=== PATIENT | male | born 1960 | race Caucasian/White ===

== ENCOUNTER → 2024-04-17 15:53 | Outpatient (REF) | payer BC, SELFPAY | LOC: RAD 15:53 | PROVIDERS: ATTENDING PHYSICIAN Nurse Practitioner Family | DX: R06.2 Wheezing (principal) | CPT/HCPCS: 71046 ==

== ENCOUNTER 2025-06-08 09:25 | Emergency (ER) | payer BC, SELFPAY ==
[2025-06-08 09:28] VITALS: BP 154/87
--- NOTE | 2025-06-08 11:25 | ED.MUSCINJ ---
HPI-Injury
General
Chief Complaint: Musculo-Skeletal Complaint
Source: patient
Exam Limitations: none
Time Seen by Provider: 06/08/25 11:10
History of Present Illness-Injury
Initial Injury comments:
64-year-old male presents with worsening lower back pain over the past several days. He has had back pain intermittently over several years but is usually able to manage it. This pain seems different. It catches him when he tries to change
position. There is no associated bowel or bladder dysfunction. No perianal anesthesia. No fever. He tried ibuprofen yesterday without significant relief. 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 He is healthy otherwise
Past History
Past History
ED Past Medical History: Negative CAD or Cancer
ED Past Surgical History: Cholecystectomy and Other (eye surgery)
Social History
Tobacco: Non-smoker
Alcohol: None
Drug: None
Personal:
Living: with family
Employment: Employed
Phy Exam
Physical Exam
Physical Exam:
General: Well-appearing male no acute respiratory distress
HEENT: Normocephalic atraumatic
Heart: Regular rate and rhythm
Lungs: Clear no wheeze
Musculoskeletal exam: Mild tenderness about the midline of the lumbar spine good range of motion all extremities
Neurologic: Good sensation and strength to the lower extremities
Vascular: Lower extremities have good blood flow 2+ DP pulse bilaterally
Injury Course
Orders/Labs/Results
Orders:
Orders
06/08/25 11:23
Diazepam [Valium] 5 mg PO NOW STA
Ketorolac [Toradol] 30 mg IM NOW STA
CR Lumbar Spine 2 Or 3 Views Urgent
Comment:
Reason For Exam: back pain
MDM/Problems Addressed
Differential Diagnosis Includes:
Low back pain without red flag signs of cauda equina. Suspect lumbar strain versus degenerative disc disease versus compression fracture. No fever to suggest infectious source
X-rays pending. Will treat with Toradol and Valium
*Pulse Oximetry
SaO2: 99
Oxygen Mode of Delivery: Room air
Patient hypoxic: no
*Critical Care Note
Total Time (30-74mins, 75-104mins- exclusive of procedures): Not Applicable
Update Note
Update Note:
X-rays lumbar spine show mild degenerative changes throughout. Overall this is the expected findings. Suspect pain related to degenerative disc versus lumbar strain. Will continue to help with medication at home and advise follow-up. Stable for
discharge
ED Attending Note
-
Portions of this chart may have been created with voice recognition software.� Occasional wrong word or��sound alike� substitutions may have occurred due to the inherent limitations of voice recognition software.
Discharge Plan
Departure
Patient Disposition: Home (Routine Discharge)
Date of Disposition: 06/08/25
Time of Disposition: 13:39
Patient with high blood pressure during this ER visit?: No
Discharge Problem:
Lumbar strain
Instructions: Muscle and Bone Pain (DC)
Prescriptions:
New
hydrocodone-acetaminophen 5-325 mg tablet
1 tab PO Q8H PRN (Reason: Pain) Qty: 10 0RF
diazepam [Valium] 5 mg tablet
5 mg PO Q8H PRN (Reason: spasm) Qty: 10 0RF
prednisone 10 mg Tablet
See Rx Instructions .ROUTE .COMPLEX Qty: 30 0RF
Rx Instructions:
Take By Mouth:
40 mg daily x3 days, 30 mg daily x3 days,
20 mg daily x3 days, 10 mg daily x3 days.
No Action
oxycodone-acetaminophen 5 MG/325 MG tablet
1 tab PO .Q4-6HPRN PRN (Reason: pain) Qty: 15 0RF
hydrocodone-acetaminophen 1 TABLET tablet
1 tab PO Q4HPRN PRN (Reason: severe pain) Qty: 10 0RF
oxycodone-acetaminophen [Percocet] 5-325 mg tablet
1 tab PO Q6HPRN PRN (Reason: pain) Qty: 10 0RF
oxycodone-acetaminophen [Percocet] 5-325 mg Tablet
1 tab PO Q6HPRN PRN (Reason: pain) Qty: 10 0RF
Referrals:
Juan Francisco Goel DO [Family Provider, Family Practice]
Activity Restrictions/Additional Instructions:
Rest. Use warm compresses. Take medicine as prescribed. Return if worse otherwise follow-up with your doctor
Interventions
Interventions:
*Risk Screen - Suicide Last Done: 06/08/25 09:28
*General Assessment Last Done: 06/08/25 09:28
*ED- Fall Risk Assessment Last Done: 06/08/25 09:28
*ED COVID-19 Vaccine History Last Done: 06/08/25 09:28
ED-Musculoskeletal Assessment Last Done: 06/08/25 10:36
Discharge Date and Time
Print Language: MALTESE
[2025-06-08] MEDS: VALIUM 5 MG PO (11:41)
[2025-06-08] MEDS: TORADOL 30 MG IM (11:41)
== END 2025-06-08 14:13 | disposition home or self-care (01) ==
LOC: EMR 09:25
PROVIDERS: EMERGENCY PHYSICIAN Emergency Medicine; FAMILY PHYSICIAN Family Medicine
DX: S39.012A Strain of muscle, fascia and tendon of lower back, initial encounter (principal); X58.XXXA Exposure to other specified factors, initial encounter; M47.816 Spondylosis without myelopathy or radiculopathy, lumbar region
CPT/HCPCS: 99284; 96372; 72100